=== PATIENT | female | born 1995 | race Caucasian/White ===

== ENCOUNTER 2017-09-03 22:26 | Emergency (ER) | payer MEDICAID ==
[~2017-09-03] VITALS: Ht 162.6 cm; Wt 99.8 kg
[2017-09-03] MEDS ORDERED: ACETAMINOPHEN 500 MG TAB PO ONE (22:45)
[2017-09-03 23:03] LABS: Basophils # (auto) 0 uL; Basophils % (auto) 0.1 % (0.0-2.0); Eosinophils # (auto) 0 uL; Eosinophils % (auto) 0.2 % (0.0-7.0); Hemoglobin 12.3 g/dL (13.5-17.5); Lymphocytes # (auto) 0.9 uL; Monocytes # (auto) 0.7 uL; Neutrophils # (auto) 13.1 uL; Red Cell Distribution Width 15.4 % (11.8-14.3); White Blood Cell 14.7 10^3/uL (4.4-10.8)
[2017-09-03 23:05] LABS: Lymphocytes % (auto) 5.9 % (10.0-50.0); Mean Corpuscular Hemoglobin 25.9 pg (28.0-32.0); Mean Corpuscular Hgb Conc. 32.4 g/dL (32.0-36.0); Mean Corpuscular Volume 79.9 fL (80.0-100.0); Monocytes % (auto) 4.7 % (0.0-12.0); Neutrophils % (auto) 89.1 % (37.0-80.0); Platelet Count (auto) 435 10^3/uL (140-450); Red Blood Cells 4.75 10^6/uL (4.5-5.90)
[2017-09-03 23:21] LABS: Albumin 3.6 g/dL (3.4-5.0); BUN/Creatinine Ratio 13.4; Bilirubin, Total 0.6 mg/dL (0.2-1.0); Calcium 8.7 mg/dL (8.5-10.1); Potassium 3.8 mmol/L (3.5-5.1); Total Protein 8.1 g/dL (6.4-8.2)
[2017-09-04 01:45] VITALS: BP 118/72
[2017-09-04 02:15] LABS: Urine Bacteria NONE SEEN /hpf (None Seen); Urine Blood Negative /uL (Negative); Urine Mucus FEW (None Seen); Urine Specific Gravity 1.033 (1.001-1.035); Urine WBC 3 /hpf (0 - 5)
== END 2017-09-04 03:16 | disposition home or self-care (01) ==
LOC: EDSEX 22:41 → ER 22:41
DX: K76.0 Fatty (change of) liver, not elsewhere classified (principal); D64.9 Anemia, unspecified
CPT/HCPCS: 36415; 74176; 80053; 80320; 81001; 84702; 85025